=== PATIENT | male | born 1970 | race African-American/Black ===

== ENCOUNTER 2016-11-28 19:45 | Inpatient (IN) | payer MEDICARE, OTHER ==
--- NOTE | ~2016-11-28 | EKG ---
PATIENT: PILO ALARCON UNIT #: [id number] Ventricular Rate: 116 BPM Atrial Rate: 116 BPM P-R Interval: 148 ms QRS Duration: 94 ms Q-T Interval: 310 ms QTC Calculation(Bezet): 430 ms P [place]: 31 degrees Calculated R [place]: 0 degrees Calculated T [place]: 22 degrees Diagnosis Line: Sinus tachycardia Diagnosis Line: Baseline wander Diagnosis Line: Left ventricular hypertrophy Diagnosis Line: Abnormal ECG Diagnosis Line: No previous ECGs available Diagnosis Line: Confirmed by JAMIL STOUT MD ([id number]) on 12/02/2016 Diagnosis Line: 10:41:07 PM INTERPRETING MD: ARGELIA MEZA
--- NOTE | ~2016-11-28 | CR72 ---
[facility] A Service of [facility] & [facility] RADIOLOGY TEXT RESULTS PATIENT: PILO ALARCON LOCATION: [facility] 218-01 : 72 UNIT #: [id number] AGE: [address]: Mine Maza MD SEX: M ORDER DR: [id number] [facility] [address] [place], [place] [address] [id number] MR#: [id number] Acc #: [id number] NAME: PILO ALARCON : 1970 SEX: M STUDY DATE/TIME: 11/28/2016 19:08 UNIT: CEDOF ROOM: 25765 STUDY DESCRIPTION: CR Chest Single View Portable Attending Physician: Katina Tang M.D. Referring Physician: Stan Hernandez M.D. Ordering Physician: Stan Krishnan M.D. Primary Care Physician: Stan Hernandez M.D. MEDICAL IMAGING REPORT This report is preliminary unless electronic signature is present EXAM Portable chest. DATE OF EXAM 11/28/2016 HISTORY Cough, fever since yesterday. Past history of leukemia. FINDINGS A single AP portable view of the chest shows both lungs to be clear. The heart is normal in size. The mediastinal contour is normal. No significant bone abnormalities are seen. IMPRESSION Normal AP portable chest. Dictated by... Kristi Correia M.D. THIS IS AN ELECTRONICALLY VERIFIED REPORT Kristi Correia M.D. at 11/29/2016 2:38 PM [place] TD: 11/28/2016 22:59 JOB #: [id number] MEDICAL IMAGING REPORT Page 1 of 1 COPY
--- NOTE | ~2016-11-28 | HP ---
Unit #: [id number] #: [id number] Patient: PILO ALARCON [id number] [address] [place], [place] [address] [id number] I MR#: [id number] NAME: PILO ALARCON ROOM: [address] Age: 45 Sex: M Admission Date: 11/28/2016 : 1970 Attending Physician: Katina Tang M.D. Referring Physician: Stan Hernandez M.D. Primary Care Physician: Stan Hernandez M.D. HISTORY AND PHYSICAL CHIEF COMPLAINT Flulike symptoms with positive strep screen, ffxon-si-csabzak kidney disease. HISTORY This pleasant 45-year-old male with hypertension and associated chronic kidney disease, is admitted for strep with shvcw-nt-ipiqnbl kidney disease. Patient was well until yesterday when he developed respiratory infection. He states that he has had a deep cough productive of some thick clear sputum, lightheadedness, fever, sweats, chills, sore throat, headache, anorexia, mildly short of breath. He presented to this emergency department with temperature of 102.1. Flu swab is negative, strep screen is positive. In the ER he was treated with Tylenol, bolused a liter of normal saline. He was given penicillin G 1.2 million IM and 500 mg of IV Levaquin. Labs are notable for gxdii-nz-zsexjzz kidney disease. His last BUN was 23, creatinine 2.6 at [facility] last year. Current BUN is 30, creatinine of 3.4. He is followed by Dr. Reyes of Nephrology. Influenza swab is negative. Strep screen is positive. PAST MEDICAL HISTORY 1. Hypertension. 2. Chronic kidney disease with BUN of 23, creatinine of 2.6 in 09/2015, followed by Dr. Reyes. The patient states that his kidney disease is on the basis of his hypertension. 3. 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 4. 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 5. Previous admission to [facility] 09/2015 for accelerated hypertension and chest pain. Echo revealed an ejection fraction of 55% to 60% with mildly impaired relaxation. Right ventricular systolic pressures of 45 mmHg. ALLERGIES No known drug allergies. HOME MEDICATIONS 1. Nasonex. 2. Clonidine 0.3 mg t.i.d. 3. Norvasc 10 mg daily. 4. Lipitor unknown dose. 5. Hydralazine 100 mg t.i.d. 6. Labetalol b.i.d. 7. Aspirin 81 mg daily. Unit #: [id number] #: [id number] Patient: PILO ALARCON 8. Tylenol. FAMILY HISTORY Kidney disease. SOCIAL HISTORY The patient lives with his mother. He is a lifelong nonsmoker, does not drink alcohol or use illicit drugs. REVIEW OF SYSTEMS Review of systems is notable for URI as dictated above, hypertension, chronic kidney disease, blindness left eye from a previous stroke, leukemia. All other systems were reviewed and are negative. PHYSICAL EXAMINATION GENERAL: Pleasant, moderately obese 45-year-old male currently in no acute distress. VITAL SIGNS: Temperature 102.1. Pulse 121. Respirations 20. Blood pressure 151/88. O2 saturation is 99%. HEENT: Eyes PERRLA, extraocular muscles are intact. Pharynx is benign. NECK: Supple, without adenopathy or thyromegaly. CHEST: Mild expiratory wheeze. CARDIAC: Normal S1 and S2, without S3, S4 or murmur. ABDOMEN: Bowel sounds are present. No hepatosplenomegaly, tenderness or masses. EXTREMITIES: Minimal edema. NEUROLOGIC EXAM: Patient is awake, alert, oriented. Cranial nerves are intact. Equal strength throughout. DIAGNOSTIC STUDIES LABORATORY: Admission labs: Hematocrit is 40.5, white blood count is 22.3, normal platelet count, four bands noted. Cardiac markers are negative. SMA-12: BUN 30, creatinine 3.4, up from BUN of 23, creatinine of 2.6 last year at [facility], potassium is 3.2. Lactic acid is normal. BNP is normal. Flu swab negative. Strep screen positive. IMAGING: Chest x-ray no acute disease. CARDIOVASCULAR: Sinus tachycardia, rate 116. ASSESSMENT 1. Flulike symptoms but with negative flu swab. Positive strep screen. 2. Rdfzk-yu-klkstjv kidney disease. Last creatinine was performed 09/2015 at [facility]. 3. Hypertension. 4. Mildly decreased oxygen saturations in the emergency room with mild wheeze, negative chest x-ray. 5. 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 6. Hyperlipidemia. 7. Childhood leukemia age 9 to 12 which was treated. 8. Previous echocardiogram showing normal ejection fraction. Right ventricular systolic pressures of 45 mmHg and impaired relaxation. 9. Hypokalemia. PLANS 1. IV fluids and supportive treatment. 2. IM penicillin G was given in the ER. 3. Recheck labs in the morning. Unit #: [id number] #: [id number] Patient: PILO ALARCON 4. Obtain urinalysis and post-void bladder scan. 5. Obtain last BMP records from Dr. Reyes' office. 6. Replace potassium. Dictated by Katina Tang M.D. AML/cf TD: 11/28/2016 22:59 JOB #: [id number] HISTORY AND PHYSICAL Page 1 of 1 X Katina Tang MD X HISTORY AND PHYSICAL
--- NOTE | ~2016-11-28 | DS ---
Unit #: [id number] #: [id number] Patient: PILO ALARCON [id number] [address] [place], [place] [address] [id number] I MR#: [id number] NAME: PILO ALARCON ROOM: 218 Age: 45 Sex: M Admission Date: 11/29/2016 : 1970 Discharge Date: 12/01/2016 Attending Physician: Mine Maza M.D. Referring Physician: Stan Hernandez M.D. Primary Care Physician: Stan Hernandez M.D. DISCHARGE SUMMARY DISCHARGE DIAGNOSES 1. Sepsis. 2. Strep throat. 3. Acute kidney injury. 4. Chronic kidney disease stage 3. 5. Hypokalemia. 6. History of cerebrovascular accident with left eye blindness. 7. Acute hypoxic respiratory failure, resolved. 8. Hypertension, uncontrolled. CONSULTATIONS None. PROCEDURES None. LAB DATA Sodium 131, potassium 3.5, creatinine 2.9, carbon dioxide 25, WBC 13.2, hemoglobin 12.8, platelets 174. Blood cultures negative. Urinalysis shows no infection. 3+ protein present. BNP 26, lactic acid 1.3. Influenzae A and B negative. Strep throat positive. ALLERGIES None. DISCHARGE MEDICATIONS 1. Ambien 5 mg at bedtime. 2. Labetalol 200 mg p.o. b.i.d. 3. Norvasc 10 mg daily. 4. Lipitor 20 daily. 5. Clonidine 0.3 mg p.o. three times daily. 6. Hydralazine 100 mg three times daily. 7. Aspirin 81 daily. HOSPITALIZATION COURSE This is a 45-year-old male admitted because of fluid like symptoms. Sepsis: The patient has Strep throat. Other cultures are negative. His Unit #: [id number] #: [id number] Patient: PILO ALARCON symptoms resolved. The patient received penicillin on admission. I don't think he needs any extra antibiotics to take home. His blood cultures are negative. Sepsis resolved. Acute kidney injury: The patient has chronic kidney disease stage 3 at [facility] when he was recently admitted. His creatinine is 2.6. He is following Dr. Reyes as an outpatient. Currently, he received IV fluids. His creatinine is 2.9. The patient will be discharged later today and to follow with Dr. Reyes in two weeks time. Told to avoid NSAIDs. The patient is not on AMRIT or ARB. Hypokalemia: Replace with p.o. potassium. Hypertension, uncontrolled: Continue with home medication. The patient will be discharged home. Follow with family physician in one week time. Follow with his respiratory manager, Dr. Reyes, in two weeks time. Dictated by... Shanna Austin TD: 12/02/2016 05:25 JOB #: [id number] DISCHARGE SUMMARY Page 1 of 1 X Mine aMza MD X DISCHARGE SUMMARY
[2016-11-28 19:15] LABS: ARTERIAL BLD GAS O2 SATURATION 90.8 % (90.0-100.0); ARTERIAL BLOOD GAS CARBOXY HB 0.8 %sat (0.0-9.0); ARTERIAL BLOOD GAS HCO3 25.6 mmol/L; ARTERIAL BLOOD GAS MET HB 1.1 %sat (0.0-2.0); ARTERIAL BLOOD GAS PCO2 37.3 mmHg (35.0-45.0); ARTERIAL BLOOD GAS pH 7.446 (7.350-7.450)
[2016-11-28 19:16] LABS: ARTERIAL BLOOD GAS ALLEN TEST NORMAL; ARTERIAL BLOOD GAS ART SITE RIGHT RADIAL; ARTERIAL BLOOD GAS PO2 63.2 mmHg (80.0-100); ARTERIAL DRAW? YES
[2016-11-28 19:22] LABS: BASOPHIL# 0.1 X10e3 (0-0.3); BASOPHIL% 0.4 % (0-2.5); EOSINOPHIL# 0.4 X10e3 (0-0.7); EOSINOPHIL% 1.9 % (0.0-7.0); HEMATOCRIT 40.5 % (38.0-50.0); LYMPHOCYTE# 2.4 X10e3 (1.0-3.5); LYMPHOCYTE% 10.6 % (17.0-45.0); MEAN CELL VOLUME 82.4 FL (83-96); MEAN CORPUSCULAR HEMOGLOBIN 26.5 PG (28-34); MEAN CORPUSCULAR HGB CONC 32.1 g/dL (30-36); MEAN PLATELET VOLUME 9.2 FL (6.5-11.5); MONOCYTE# 1.5 X10e3 (0-1.0); MONOCYTE% 6.8 % (3.0-12.0); NEUTROPHIL# 17.9 X10e3 (1.5-7.1); NEUTROPHIL% 80.3 % (40-75); PLATELET COUNT 198 X10e3 (140-420); RED BLOOD COUNT 4.91 X10e (3.90-5.60); RED CELL DISTRIBUTION WIDTH 15.5 % (11.0-15.5); WHITE BLOOD COUNT 22.3 X10e3 (4.0-10.5)
[2016-11-28 19:28] LABS: DIFF IND YES
[2016-11-28 19:28] LABS: POC - CKMB <1.0 ng/mL (0.0-7.9); POC - TROPONIN <0.05 ng/mL (<=0.05)
[2016-11-28 19:31] LABS: INFLUENZA A NEG (NEG); INFLUENZA B NEG (NEG)
[2016-11-28 19:38] LABS: ALBUMIN SERUM 4.3 g/dL (3.5-5.0); BILIRUBIN, DIRECT 0.1 mg/dL (0.0-0.2); BILIRUBIN,INDIRECT 0.5 mg/dL (0.0-0.9); BILIRUBIN,TOTAL 0.6 mg/dL (0.2-2.0); BUN/CREATININE RATIO 8.82; CALCIUM SERUM 9.2 mg/dL (8.4-10.2); CREATININE SERUM 3.4 mg/dL (0.6-1.4); GLOM FILT RATE Estimated 20.9 mL/min (>60); POTASSIUM 3.2 mmol/L (3.5-5.1); PROTEIN TOTAL SERUM 7.9 g/dL (6.0-8.3)
[2016-11-28 19:44] LABS: PLATELET ESTIMATE INCREASED (NORMAL); RBC NORMAL YES
[2016-11-28 21:08] LABS: POC - CKMB <1.0 ng/mL (0.0-7.9); POC - TROPONIN <0.05 ng/mL (<=0.05)
[2016-11-29 00:49] LABS: URINE SOURCE CLEAN CATCH
[2016-11-29 01:01] LABS: URINE APPEARANCE CLEAR; URINE BILIRUBIN NEG (NEG); URINE BLOOD NEG (NEG); URINE COLOR YELLOW; URINE GLUCOSE NEG (NEG); URINE KETONE NEG (NEG); URINE LEUKOCYTE ESTERASE NEG (NEG); URINE NITRATE NEG (NEG); URINE PROTEIN 3+ (NEG); URINE SPECIFIC GRAVITY 1.013 (1.003-1.035); URINE UROBILINOGEN 0.2 MG/DL (NEG)
[2016-11-29 01:04] LABS: URINE BACTERIA AUWI NEG (NEGATIVE); URINE SQUAMOUS EPITHELIAL CELL NONE SEEN /[HPF]; UWBCS1 AUWI 0-2 (0-5)
[2016-11-29 01:05] LABS: CULTURE INDICATED? NO
[2016-11-29 05:07] LABS: BASOPHIL% 0.3 % (0-2.5); EOSINOPHIL# 0.4 X10e3 (0-0.7); EOSINOPHIL% 2.2 % (0.0-7.0); HEMATOCRIT 35.3 % (38.0-50.0); HEMOGLOBIN 11.6 gm/dL (13.0-16.0); LYMPHOCYTE# 1.4 X10e3 (1.0-3.5); LYMPHOCYTE% 8.3 % (17.0-45.0); MEAN CELL VOLUME 81.4 FL (83-96); MEAN CORPUSCULAR HEMOGLOBIN 26.8 PG (28-34); MEAN CORPUSCULAR HGB CONC 32.9 g/dL (30-36); MEAN PLATELET VOLUME 8.8 FL (6.5-11.5); MONOCYTE# 1.8 X10e3 (0-1.0); MONOCYTE% 10.7 % (3.0-12.0); NEUTROPHIL# 13.2 X10e3 (1.5-7.1); NEUTROPHIL% 78.5 % (40-75); PLATELET COUNT 169 X10e3 (140-420); RED BLOOD COUNT 4.34 X10e (3.90-5.60); RED CELL DISTRIBUTION WIDTH 15.8 % (11.0-15.5); WHITE BLOOD COUNT 16.9 X10e3 (4.0-10.5)
[2016-11-29 05:12] LABS: DIFF IND NO
[2016-11-29 05:32] LABS: BUN/CREATININE RATIO 8.06; CALCIUM SERUM 8.6 mg/dL (8.4-10.2); CREATININE SERUM 3.1 mg/dL (0.6-1.4); GLOM FILT RATE Estimated 27.1 mL/min (>60); POTASSIUM 3.4 mmol/L (3.5-5.1)
[2016-11-29] MEDS ORDERED: NORMODYNE100 M1 PO (06:43)
[2016-11-29] MEDS ORDERED: ASPIRIN81 MG PO (06:43)
[2016-11-29] MEDS ORDERED: HYDRALAZINE HC100 MG PO (06:43)
[2016-11-29] MEDS ORDERED: NORVASC10 MG PO (06:44)
[2016-11-29] MEDS ORDERED: CLONIDINE HCL0.3 MG PO (06:44)
[2016-11-29] MEDS ORDERED: AMBIEN PO (09:52)
[2016-11-29] MEDS ORDERED: LIPITOR20 MG PO (09:52)
[2016-11-30 05:33] LABS: HEMATOCRIT 39.7 % (38.0-50.0); HEMOGLOBIN 12.8 gm/dL (13.0-16.0); MEAN CORPUSCULAR HEMOGLOBIN 26.4 PG (28-34); MEAN CORPUSCULAR HGB CONC 32.2 g/dL (30-36); RED BLOOD COUNT 4.84 X10e (3.90-5.60); RED CELL DISTRIBUTION WIDTH 15.7 % (11.0-15.5); WHITE BLOOD COUNT 13.2 X10e3 (4.0-10.5)
[2016-11-30 06:36] LABS: ALBUMIN SERUM 3.8 g/dL (3.5-5.0); BILIRUBIN,TOTAL 0.4 mg/dL (0.2-2.0); GLOM FILT RATE Estimated 28.2 mL/min (>60); POTASSIUM 3.3 mmol/L (3.5-5.1); PROTEIN TOTAL SERUM 7.6 g/dL (6.0-8.3)
[2016-12-01 06:19] LABS: BUN/CREATININE RATIO 8.27; CALCIUM SERUM 8.7 mg/dL (8.4-10.2); CREATININE SERUM 2.9 mg/dL (0.6-1.4); GLOM FILT RATE Estimated 29.4 mL/min (>60); POTASSIUM 3.5 mmol/L (3.5-5.1)
== END 2016-12-01 17:52 | disposition home or self-care (01) | DRG 871 ==
LOC: CED 19:45 → CEDOF 22:46 → C2A 11-29 12:00
PROVIDERS: Emergency Medicine; Internal Medicine
DX: A41.9 Sepsis, unspecified organism (principal); J96.01 Acute respiratory failure with hypoxia; N17.9 Acute kidney failure, unspecified; J02.0 Streptococcal pharyngitis; I12.9 Hypertensive chronic kidney disease with stage 1 through stage 4 chronic kidney disease, or unspecified chronic kidney disease; N18.3 Chronic kidney disease, stage 3 (moderate); E87.6 Hypokalemia; I69.398 Other sequelae of cerebral infarction; H54.42 Blindness, left eye, normal vision right eye; Z79.82 Long term (current) use of aspirin; Z85.6 Personal history of leukemia; E78.5 Hyperlipidemia, unspecified
CPT/HCPCS: 36415; 36600; 71010; 80048; 80053; 80076; 81003; 82553; 82803; 83605; 83735; 83880; 84484; 85025; 85027; 87040; 87804; 87880; 93005; 94640; 94760; 96360; 96372; 99285; J0561; J1650; J1956